=== PATIENT | male | born 1985 | race African-American/Black ===

== ENCOUNTER 2018-03-18 18:39 | Emergency (ER) | payer OTHER ==
[~2018-03-18] VITALS: Ht 182.9 cm; Wt 100.0 kg
[2018-03-18] MEDS ORDERED: PROZAC10 M2 PO (18:48)
[2018-03-18] MEDS ORDERED: VISTARIL25 M1 PO (18:48)
[2018-03-18 20:28] VITALS: BP 120/76
== END 2018-03-18 20:28 | disposition home or self-care (01) ==
LOC: ED 18:39
DX: S93.401A Sprain of unspecified ligament of right ankle, initial encounter (principal); X50.1XXA Overexertion from prolonged static or awkward postures, initial encounter; Y92.008 Other place in unspecified non-institutional (private) residence as the place of occurrence of the external cause